=== PATIENT | male | born 1930 | race Caucasian/White ===

== ENCOUNTER 2017-05-20 09:53 | Day surgery (SDC) | payer OTHER ==
[~2017-05-20] VITALS: Ht 188 cm; Wt 72.6 kg
[~2017-05-20 09:53] MED LIST: ALBU1AER4 IN; ASPI81TA27 PO; FLUO-125 PO; MELA3TAB27 PO; OMEP20CA74 PO; TAMS0.4C36 PO
[2017-05-20] MEDS ORDERED: IOHEXOL 350 MG/ML 100ML IJ ONE (10:33)
[2017-05-20] MEDS ORDERED: LIDOCAINE 2%HCL (LOCAL ANESTH.) INJ 20ML MDV ONE (10:34)
[2017-05-20] MEDS ORDERED: ANGIOMAX 250 MG VIAL IV ONE (10:57)
[2017-05-20] MEDS ORDERED: SODIUM CHL 0.9% 0 ML ONE (10:58)
[2017-05-20] MEDS ORDERED: MIDAZOLAM HCL 1MG/1ML-2 ML VIAL ONE (10:58)
[2017-05-20] MEDS ORDERED: fentaNYL CITRATE 100 MCG/2 ML VL ONE (10:58)
[2017-05-20] MEDS ORDERED: hydrALAZINE HCL 20 MG/ML VL ONE (11:40)
== END 2017-05-20 14:10 | disposition home or self-care (01) ==
LOC: CATH 09:53
PROVIDERS: ATTEND Internal Medicine Cardiovascular Disease
DX: I25.10 Atherosclerotic heart disease of native coronary artery without angina pectoris (principal); I71.9 Aortic aneurysm of unspecified site, without rupture; E66.9 Obesity, unspecified; Z68.20 Body mass index [BMI] 20.0-20.9, adult; Z91.010 Allergy to peanuts; Z88.1 Allergy status to other antibiotic agents; I10 Essential (primary) hypertension; J45.909 Unspecified asthma, uncomplicated
CPT/HCPCS: 93458; C1760; C1894; J0360; J1644; J2250; J3010; J7030; Q9967; 99152